=== PATIENT | female | born 1990 | race Caucasian/White ===

== ENCOUNTER 2020-08-09 03:39 | Emergency (ER) | payer OTHER ==
[~2020-08-09] VITALS: Ht 167.6 cm; Wt 68.0 kg
== END 2020-08-09 05:34 | disposition home or self-care (01) ==
LOC: ED 03:39
DX: F11.10 Opioid abuse, uncomplicated (principal); J45.909 Unspecified asthma, uncomplicated; F17.210 Nicotine dependence, cigarettes, uncomplicated; Z88.0 Allergy status to penicillin